=== PATIENT | female | born 1955 | race African-American/Black ===

== ENCOUNTER 2019-03-13 11:09 | Inpatient (IN) ==
[2019-03-13] MEDS ORDERED: MAGNESIUM SULF RIDER 2 GM in PREMIX 1 EACH IV PRN (11:57)
[2019-03-13] MEDS ORDERED: POTASSIUM CHLORIDE RIDER 10 MEQ in PREMIX 1 EACH IV PRN (11:57)
[2019-03-13] MEDS ORDERED: diphenhydrAMINE CAP 25 MG CAPSULE PO ONE (11:57)
[2019-03-13] MEDS ORDERED: DIAZEPAM 5 MG TABLET PO ONE ×2 (11:57→17:11)
[2019-03-13] MEDS ORDERED: ASPIRIN 325 MG TABLET PO ONE (11:57)
[2019-03-13] MEDS ORDERED: DEXTROSE 5% NACL 0.45% 1,000 ML IV SCH (12:00)
[2019-03-13 12:23] LABS: Basophils % 0.3 % (0.0-0.8); Eosinophils % 0.4 % (0.00-10.9); Hematocrit 41.1 VOL% (35.7-47.0); Hemoglobin 13.6 GM/DL (12.0-16.0); Immature Granulocytes % 0.3 %; Immature Granulocytes Absolute 0.03 #; Lymphocytes # 2.4 10*3/uL (1.4-4.0); Lymphocytes % 25.8 % (21.3-54.2); Mean Corpuscular HGB Conc 33.1 GM/DL (32-36); Mean Corpuscular Volume 83.7 FL (87-102); Mean Platelet Volume 9.9 FL (9.6-12.0); Monocytes % 8.2 % (1.7-12.7); Platelet Count 383 T/CUMM (130-400); Red Blood Count 4.91 MC/CUMM (3.8-5.5); Red Cell Distribution Width 12.9 % (9.3-17.3); White Blood Count 9.2 T/CUMM (4-12)
[2019-03-13 12:32] LABS: PT Patient Result 10.8 SECS
[2019-03-13 12:48] LABS: Albumin 4.3 G/DL (3.4-5.0); Bilirubin,Total 0.4 MG/DL (0.2-1.0); Calcium 9.6 MG/DL (8.5-10.1); Osmolality,Calculated 278.1 MOS/KG (273-304); Total Protein 8.3 G/DL (6.4-8.3)
[2019-03-13] MEDS ORDERED: HEPARIN/NACL 0.9% 2 UNITS/ML 1,000 ML IV ONE (13:19)
[2019-03-13] MEDS ORDERED: MIDAZOLAM 2 MG/2 ML VIAL ONE ×2 (13:19→14:13)
[2019-03-13] MEDS ORDERED: fentaNYL 100 MCG/2 ML VIAL ONE (13:19)
[2019-03-13] MEDS ORDERED: methylPREDNISolone SOD SUC 125 MG/2 ML VIAL IV ONE (13:22)
[2019-03-13] MEDS ORDERED: hydrOXYzine HCL 25 MG TABLET PO ONE (13:24)
[2019-03-13] MEDS ORDERED: LIDOCAINE 1%/EPI INJ 20 ML VIAL ONE (13:46)
[2019-03-13] MEDS ORDERED: HYDROmorphone 2 MG/1 ML VIAL ONE (14:01)
[2019-03-13] MEDS ORDERED: ADENOSINE 90 MG/30 ML VIAL IV ONE (14:21)
[2019-03-13] MEDS ORDERED: HEPARIN 5,000 UNIT/1 ML VIAL ONE (14:33)
[2019-03-13] MEDS ORDERED: ENOXAPARIN 60 MG/0.6 ML SYRINGE ONE (14:33)
[2019-03-13] MEDS ORDERED: NITROGLYCERIN DRIP 50 MG/250 ML BOTTLE IV PRN (14:55)
[2019-03-13] MEDS ORDERED: NITROGLYCERIN DRIP 50 MG/250 ML BOTTLE IV ONE (14:57)
[2019-03-13] MEDS ORDERED: CHLORPHENIRAMINE PHENYLEPHRINE PO PRN (15:14)
[2019-03-13] MEDS ORDERED: DEXTROSE 10% 250 ML BAG IV PRN (15:29)
[2019-03-13] MEDS ORDERED: GLUCAGON 1 MG VIAL IM PRN (15:29)
[2019-03-13] MEDS ORDERED: NITROGLYCERIN SL 0.4 MG TABLET SL PRN (15:30)
[2019-03-13] MEDS ORDERED: SODIUM CHLORIDE 0.9% 1,000 ML IV SCH (15:30)
[2019-03-13 15:56] LABS: Basophils % 0.2 % (0.0-0.8); Eosinophils % 0.3 % (0.00-10.9); Hematocrit 40.8 VOL% (35.7-47.0); Hemoglobin 13.3 GM/DL (12.0-16.0); Immature Granulocytes % 0.5 %; Immature Granulocytes Absolute 0.04 #; Lymphocytes # 1.5 10*3/uL (1.4-4.0); Lymphocytes % 16.8 % (21.3-54.2); Mean Corpuscular HGB Conc 32.6 GM/DL (32-36); Mean Corpuscular Volume 85.2 FL (87-102); Mean Platelet Volume 9.7 FL (9.6-12.0); Monocytes % 5.2 % (1.7-12.7); Platelet Count 368 T/CUMM (130-400); Red Blood Count 4.79 MC/CUMM (3.8-5.5); White Blood Count 8.8 T/CUMM (4-12)
[2019-03-13 16:15] LABS: Albumin 4.4 G/DL (3.4-5.0); Bilirubin,Total 0.4 MG/DL (0.2-1.0); Calcium 9.6 MG/DL (8.5-10.1); Osmolality,Calculated 280.2 MOS/KG (273-304); Total Protein 8.2 G/DL (6.4-8.3)
[2019-03-13] MEDS ORDERED: FAMOTIDINE 20 MG TABLET PO ONE (17:11)
[2019-03-13] MEDS ORDERED: hydrALAZINE 20 MG/1 ML VIAL IV PRN (17:22)
[2019-03-13 17:25] LABS: ABG Base Excess 0.1 MMOL/L (-2.5-2.5); ABG HCO3 24.5 MMOL/L (20-26); ABG Oxygen Saturation 96.1 % (95-100); ABG PCO2 43.4 MM HG (35-48); ABG PH 7.377 (7.35-7.45); ABG PO2 83.9 MM HG (80-95); ABG TCO2 22.2 MMOL/L (23-27); Allen Test Positive; Pt O2 Delivery Device Room Air
[2019-03-13] MEDS ORDERED: amLODIPine 5 MG TABLET PO ONE (17:39)
[2019-03-13] MEDS ORDERED: LOSARTAN 50 MG TABLET PO ONE (17:40)
[2019-03-13] MEDS ORDERED: INSULIN GLARGINE 100 UNIT/ML SUBCUT SCH (18:00)
[2019-03-13] MEDS ORDERED: TRIAMCINOLONE 0.1% OINT 15 GM TUBE TOP PRN (21:00)
[2019-03-13] MEDS ORDERED: NEBIVOLOL 5 MG TABLET PO SCH (21:00)
[2019-03-13] MEDS ORDERED: METOPROLOL TARTRATE 5 MG/5 ML VIAL IV PRN (21:14)
[2019-03-13] MEDS: CHLORHEXIDINE 4% SOLN 118 ML BOTTLE TOP SCH (21:49)
[2019-03-13] MEDS: CHLORHEXIDINE 0.12% ORAL RINSE 60 ML BOTTLE SWISH/SPIT SCH (21:52)
[2019-03-14] MEDS ORDERED: PAPAVERINE 60 MG/2 ML VIAL ONE (05:13)
[2019-03-14] MEDS ORDERED: VANCOMYCIN 1,000 MG VIAL ONE (05:14)
[2019-03-14] MEDS: FAMOTIDINE 20 MG TABLET PO ONE ×2 (05:37)
[2019-03-14] MEDS: DIAZEPAM 5 MG TABLET PO ONE ×2 (05:37)
[2019-03-14 05:50] LABS: Basophils % 0.2 % (0.0-0.8); Hematocrit 39.7 VOL% (35.7-47.0); Hemoglobin 13.5 GM/DL (12.0-16.0); Immature Granulocytes % 0.3 %; Immature Granulocytes Absolute 0.03 #; Lymphocytes # 1.8 10*3/uL (1.4-4.0); Lymphocytes % 17.2 % (21.3-54.2); Mean Corpuscular Volume 82.5 FL (87-102); Mean Platelet Volume 10.8 FL (9.6-12.0); Monocytes % 7.5 % (1.7-12.7); Neutrophils % 74.8 % (38.7-73.9); Platelet Count 371 T/CUMM (130-400); Red Blood Count 4.81 MC/CUMM (3.8-5.5); Red Cell Distribution Width 13.1 % (9.3-17.3); White Blood Count 10.6 T/CUMM (4-12)
[2019-03-14] MEDS ORDERED: CEFUROXIME INJ 1,500 MG in SYRINGE 1 EACH IV ONE (06:00)
[2019-03-14 06:24] LABS: Calcium 9.6 MG/DL (8.5-10.1)
[2019-03-14 07:40] LABS: ABG Base Excess 0.6 MMOL/L (-2.5-2.5); ABG PCO2 35.2 MM HG (35-48); ABG PH 7.445 (7.35-7.45); ABG TCO2 21.2 MMOL/L (23-27); Glucose Heart Surgery 333 MG/DL (74-106); Hematocrit Heart Surgery 38.4 PERCENT (37-47); Hemoglobin Heart Surgery 12.5 G/DL (12.0-16.0); Ionized Calcium Arterial 1.18 MMOL/L (1.21-1.46); PCO2 Patient Temp Arterial 35.2 MMHG; PH Patient Temp Arterial 7.445; Patient Temperature 37 CELCIUS; Potassium Heart/CVR 3.6 MMOL/L (3.5-5.1); Sodium Heart/CVR 134 MMOL/L (135-145)
[2019-03-14] MEDS ORDERED: NITROPRUSSIDE 50 MG/2 ML VIAL ONE (07:50)
[2019-03-14] MEDS ORDERED: PHENYLEPHRINE DRIP 40 MG/250 ML PREMIX IV ONE (07:51)
[2019-03-14] MEDS ORDERED: POTASSIUM CHLORIDE RIDER 100 ML IV ONE ×2 (07:51→12:41)
[2019-03-14] MEDS ORDERED: CALCIUM CHLORIDE 1,000 MG/10 ML SYRINGE IV ONE (07:51)
[2019-03-14] MEDS ORDERED: SODIUM BICARBONATE 50 MEQ/50 ML VIAL IV ONE ×3 (07:51→16:17)
[2019-03-14] MEDS ORDERED: CEFUROXIME 1,500 MG VIAL ONE (07:54)
[2019-03-14 08:36] LABS: Apearance,Urine CLEAR (Clear); Bilirubin,Urine Negative (Negative); Blood, Urine Negative (Negative); Glucose,Urine (UA) >=500 mg/dL (Negative); Hyaline Casts,Urine 15 /LPF (0-3); Ketones,Urine Negative (Negative); Mucus,Urine Occasional /LPF (Occasional); Nitrite,Urine Negative (Negative); Protein,Urine Negative; RBC,Urine 1 /HPF (0-4); Transitional Epi Cells,Urine Occasional /HPF (<1); Urine Color Yellow (Yellow); Urine Specific Gravity 1.024 (1.001-1.035); Urine Urobilinogen < 2.0 EU/DL (0.2-1.0); WBC,Urine 1 /HPF (0-6)
[2019-03-14] MEDS ORDERED: amLODIPine 5 MG TABLET PO SCH (09:00)
[2019-03-14] MEDS ORDERED: hydroCHLOROthiazide 25 MG TABLET PO SCH (09:00)
[2019-03-14] MEDS ORDERED: ROSUVASTATIN 10 MG TABLET PO SCH (09:00)
[2019-03-14] MEDS: CHLORHEXIDINE 4% SOLN 118 ML BOTTLE TOP SCH (09:00)
[2019-03-14] MEDS ORDERED: LOSARTAN 50 MG TABLET PO SCH (09:00)
[2019-03-14] MEDS ORDERED: POTASSIUM CHLORIDE 10 MEQ TABLET PO SCH (09:00)
[2019-03-14] MEDS ORDERED: ASPIRIN EC 81 MG TABLET PO SCH (09:00)
[2019-03-14] MEDS: CHLORHEXIDINE 0.12% ORAL RINSE 60 ML BOTTLE SWISH/SPIT SCH ×2 (09:01→21:22)
[2019-03-14 09:19] LABS: Hematocrit Heart Surgery 24.1 PERCENT (37-47); Hemoglobin Heart Surgery 7.7 G/DL (12.0-16.0); PCO2 Patient Temp Venous 30.9 MM HG; PH Patient Temp Venous 7.482; PO2 Patient Temp Venous 39.2 MM HG; VBG Base Excess 0.1 MEQ/L (0-4); VBG HCO3 24.4 MEQ/L (24-28); VBG Oxygen Saturation 85.2 %; VBG PCO2 35.7 MMHG (41-51); VBG PH 7.437; VBG PO2 48.2 MMHG (17-40)
[2019-03-14 09:52] LABS: Hemoglobin Heart Surgery 8.6 G/DL (12.0-16.0); PCO2 Patient Temp Venous 29.6 MM HG; PH Patient Temp Venous 7.502; PO2 Patient Temp Venous 42.4 MM HG; Potassium Heart/CVR 3.7 MMOL/L (3.5-5.1); VBG Base Excess -0.2 MEQ/L (0-4); VBG HCO3 23.1 MEQ/L (24-28); VBG Oxygen Saturation 81.1 %; VBG PCO2 32.3 MMHG (41-51); VBG PH 7.472; VBG PO2 48.8 MMHG (17-40)
[2019-03-14] MEDS ORDERED: MANNITOL 100 GM/500 ML BAG IV ONE (10:18)
[2019-03-14] MEDS ORDERED: ALBUMIN 5% 12.5 GM/250 ML VIAL IV ONE (10:19)
[2019-03-14] MEDS ORDERED: DEXTROSE 5% KCL 20 MEQ 20 MEQ/1,000 ML BAG IV ONE (10:19)
[2019-03-14] MEDS ORDERED: MAGNESIUM SULFATE 5 GM/10 ML VIAL IV ONE (10:19)
[2019-03-14] MEDS ORDERED: ALBUMIN 25% 25 GM/100 ML VIAL IV ONE (10:19)
[2019-03-14] MEDS ORDERED: HEPARIN 10,000 UNIT/10 ML VIAL ONE ×2 (10:19→11:21)
[2019-03-14] MEDS ORDERED: methylPREDNISolone SOD SUC 1,000 MG/8 ML VIAL ONE (10:19)
[2019-03-14] MEDS ORDERED: PROTAMINE SULFATE 250 MG/25 ML VIAL IV ONE (10:19)
[2019-03-14] MEDS ORDERED: FUROSEMIDE 20 MG/2 ML VIAL ONE (10:19)
[2019-03-14 10:23] LABS: ABG Base Excess 0.6 MMOL/L (-2.5-2.5); ABG PCO2 31.2 MM HG (35-48); ABG PH 7.485 (7.35-7.45); ABG TCO2 21.5 MMOL/L (23-27); Glucose Heart Surgery 312 MG/DL (74-106); Hematocrit Heart Surgery 28.5 PERCENT (37-47); Hemoglobin Heart Surgery 9.2 G/DL (12.0-16.0); Ionized Calcium Arterial 1.38 MMOL/L (1.21-1.46); PCO2 Patient Temp Arterial 31.2 MMHG; PH Patient Temp Arterial 7.485; Patient Temperature 37 CELCIUS; Potassium Heart/CVR 3.3 MMOL/L (3.5-5.1); Sodium Heart/CVR 135 MMOL/L (135-145)
[2019-03-14] MEDS ORDERED: CALCIUM CHLORIDE 1,000 MG/10 ML VIAL IV ONE (11:20)
[2019-03-14] MEDS ORDERED: SEVOFLURANE 1 UNIT/15 MINUTE INH ONE (11:21)
[2019-03-14] MEDS ORDERED: PHENYLEPHRINE DRIP 20 MG/250 ML PREMIX IV ONE (11:21)
[2019-03-14] MEDS ORDERED: EPINEPHrine 1 MG/ML VIAL ONE (11:21)
[2019-03-14] MEDS ORDERED: SUFentanil 250 MCG/5 ML AMP ONE (11:21)
[2019-03-14] MEDS ORDERED: HEPARIN/NACL 0.9% 2 UNITS/ML 500 ML IV ONE (11:21)
[2019-03-14] MEDS ORDERED: MIDAZOLAM 10 MG/2 ML VIAL ONE (11:21)
[2019-03-14] MEDS ORDERED: SODIUM CHLORIDE 0.9% 250 ML IV ONE (11:22)
[2019-03-14] MEDS ORDERED: VECURONIUM 10 MG VIAL IV ONE (11:22)
[2019-03-14] MEDS ORDERED: diphenhydrAMINE 50 MG/1 ML VIAL ONE (11:22)
[2019-03-14] MEDS ORDERED: SODIUM CHLORIDE 0.9% 100 ML IV ONE (11:22)
[2019-03-14] MEDS ORDERED: AMINOCAPROIC ACID 5,000 MG/20 ML VIAL ONE (11:22)
[2019-03-14] MEDS ORDERED: LACTATED RINGERS 1,000 ML IV ONE (11:22)
[2019-03-14] MEDS ORDERED: SODIUM CHLORIDE 0.9% 2,000 ML IV ONE (11:22)
[2019-03-14] MEDS ORDERED: ACETAMINOPHEN 650 MG SUPP RECTAL PRN (11:30)
[2019-03-14] MEDS ORDERED: DEXTROSE 50% 25 GM/50 ML VIAL IV PRN ×2 (11:30)
[2019-03-14] MEDS ORDERED: MORPHINE 10 MG/1 ML VIAL IV PRN (11:30)
[2019-03-14] MEDS ORDERED: ALBUMIN 5% 12.5 GM in PREMIX 1 EACH IV PRN (11:30)
[2019-03-14] MEDS ORDERED: MIDAZOLAM 10 MG/2 ML VIAL IV PRN (11:30)
[2019-03-14] MEDS ORDERED: INSULIN REGULAR 100 UNIT/ML IV ONE (11:30)
[2019-03-14] MEDS ORDERED: MAGNESIUM SULF RIDER 2 GM in PREMIX 1 EACH IV PRN (11:30)
[2019-03-14] MEDS ORDERED: POTASSIUM CHLORIDE RIDER 10 MEQ in PREMIX 1 EACH IV PRN (11:30)
[2019-03-14] MEDS ORDERED: VECURONIUM 10 MG VIAL IV PRN ×2 (11:30)
[2019-03-14] MEDS ORDERED: MIDAZOLAM 2 MG/2 ML VIAL IV PRN (11:30)
[2019-03-14] MEDS ORDERED: MAGNESIUM SULF RIDER 4 GM in PREMIX 1 EACH IV PRN (11:30)
[2019-03-14] MEDS ORDERED: INSULIN REGULAR 100 UNIT/ML IV PRN (11:30)
[2019-03-14] MEDS ORDERED: LACTATED RINGERS 250 ML IV PRN (11:30)
[2019-03-14] MEDS ORDERED: CALCIUM CHLORIDE 1,000 MG/10 ML SYRINGE IV PRN (11:30)
[2019-03-14] MEDS ORDERED: PHENYLEPHRINE DRIP 40 MG/250 ML PREMIX IV PRN (11:30)
[2019-03-14] MEDS ORDERED: NITROPRUSSIDE 100 MG in DEXTROSE 5% 250 ML IV PRN (11:30)
[2019-03-14 11:33] LABS: ABG Base Excess -0.1 MMOL/L (-2.5-2.5); ABG HCO3 24.4 MMOL/L (20-26); ABG Oxygen Saturation 99.1 % (95-100); ABG PCO2 36.8 MM HG (35-48); ABG PH 7.423 (7.35-7.45); ABG TCO2 21.7 MMOL/L (23-27); Glucose Heart Surgery 320 MG/DL (74-106); Hematocrit Heart Surgery 32.4 PERCENT (37-47); Hemoglobin Heart Surgery 10.5 G/DL (12.0-16.0); Potassium Heart/CVR 3.4 MMOL/L (3.5-5.1)
[2019-03-14 11:40] LABS: Basophils % 0.2 % (0.0-0.8); Eosinophils % 0.2 % (0.00-10.9); Hematocrit 30.4 VOL% (35.7-47.0); Hemoglobin 10.1 GM/DL (12.0-16.0); Immature Granulocytes % 0.7 %; Immature Granulocytes Absolute 0.09 #; Lymphocytes # 1.5 10*3/uL (1.4-4.0); Lymphocytes % 11.7 % (21.3-54.2); Mean Corpuscular HGB Conc 33.2 GM/DL (32-36); Mean Corpuscular Volume 84.4 FL (87-102); Mean Platelet Volume 10.2 FL (9.6-12.0); Monocytes % 6.7 % (1.7-12.7); Neutrophils % 80.5 % (38.7-73.9); Platelet Count 269 T/CUMM (130-400); Red Cell Distribution Width 12.9 % (9.3-17.3); White Blood Count 12.6 T/CUMM (4-12)
[2019-03-14 11:46] LABS: INR 1.1; Partial Thromboplastin Time 24.3 SECS (0-40)
[2019-03-14 11:55] LABS: CKMB % 4.1 %
[2019-03-14 11:57] LABS: Troponin I 1.31 NG/ML (0.00-0.045)
[2019-03-14] MEDS: SODIUM CHLORIDE 0.45% 1,000 ML IV SCH ×2 (11:58→11:59)
[2019-03-14] MEDS: POTASSIUM CHLORIDE RIDER 20 MEQ in PREMIX 1 EACH IV PRN ×5 (11:59→21:58)
[2019-03-14] MEDS: INSULIN REGULAR DRIP 100 ML IV SCH ×2 (12:01→21:19)
[2019-03-14 12:05] LABS: Albumin 4.1 G/DL (3.4-5.0); Calcium 9.1 MG/DL (8.5-10.1); Osmolality,Calculated 293.3 MOS/KG (273-304); Total Protein 6.2 G/DL (6.4-8.3)
[2019-03-14] MEDS: KETOROLAC 15 MG/1 ML VIAL IV SCH ×2 (13:14→17:31)
[2019-03-14 13:33] LABS: ABG Base Excess -1.4 MMOL/L (-2.5-2.5); ABG HCO3 23.2 MMOL/L (20-26); ABG Oxygen Saturation 98.9 % (95-100); ABG PCO2 38.1 MM HG (35-48); ABG PH 7.392 (7.35-7.45); ABG TCO2 20.7 MMOL/L (23-27); Glucose Heart Surgery 300 MG/DL (74-106); Hematocrit Heart Surgery 34.7 PERCENT (37-47); Hemoglobin Heart Surgery 11.3 G/DL (12.0-16.0); Potassium Heart/CVR 4.4 MMOL/L (3.5-5.1)
[2019-03-14 15:31] LABS: ABG Base Excess -4.1 MMOL/L (-2.5-2.5); ABG Oxygen Saturation 97.2 % (95-100); ABG PCO2 41.3 MM HG (35-48); ABG PH 7.328 (7.35-7.45); ABG TCO2 19.6 MMOL/L (23-27); Glucose Heart Surgery 224 MG/DL (74-106); Hematocrit Heart Surgery 34.1 PERCENT (37-47); Potassium Heart/CVR 3.4 MMOL/L (3.5-5.1)
[2019-03-14 17:06] LABS: ABG Base Excess -2.2 MMOL/L (-2.5-2.5); ABG HCO3 22.4 MMOL/L (20-26); ABG Oxygen Saturation 96.8 % (95-100); ABG PCO2 38.2 MM HG (35-48); ABG PH 7.387 (7.35-7.45); ABG PO2 107.6 MM HG (80-95); ABG TCO2 23.6 MMOL/L (23-27); Glucose Heart Surgery 191 MG/DL (74-106); Hemoglobin Heart Surgery 11.3 G/DL (12.0-16.0); Potassium Heart/CVR 4.1 MMOL/L (3.5-5.1)
[2019-03-14] MEDS: MORPHINE 4 MG/1 ML VIAL IV PRN (19:22)
[2019-03-14] MEDS: CEFUROXIME INJ 1,500 MG in SYRINGE 1 EACH IV SCH (19:26)
[2019-03-14] MEDS ORDERED: FUROSEMIDE 40 MG/4 ML VIAL IV ONE (19:43)
[2019-03-14 20:08] LABS: ABG Base Excess 0.5 MMOL/L (-2.5-2.5); ABG HCO3 23.9 MMOL/L (20-26); ABG Oxygen Saturation 97.2 % (95-100); ABG PCO2 34.2 MM HG (35-48); ABG PH 7.462 (7.35-7.45); ABG TCO2 24.9 MMOL/L (23-27); Glucose Heart Surgery 156 MG/DL (74-106); Hemoglobin Heart Surgery 11.5 G/DL (12.0-16.0); Potassium Heart/CVR 4.1 MMOL/L (3.5-5.1)
[2019-03-14 20:55] LABS: ABG Base Excess -0.2 MMOL/L (-2.5-2.5); ABG HCO3 24.3 MMOL/L (20-26); ABG Oxygen Saturation 97.8 % (95-100); ABG PCO2 44.2 MM HG (35-48); ABG PH 7.368 (7.35-7.45); ABG TCO2 22.6 MMOL/L (23-27); Glucose Heart Surgery 160 MG/DL (74-106); Hematocrit Heart Surgery 36.8 PERCENT (37-47); Potassium Heart/CVR 3.6 MMOL/L (3.5-5.1)
[2019-03-14 21:04] LABS: CKMB % 2.7 %
[2019-03-14 21:12] LABS: Troponin I 1.63 NG/ML (0.00-0.045)
[2019-03-15] MEDS: KETOROLAC 15 MG/1 ML VIAL IV SCH ×4 (00:16→17:31)
[2019-03-15] MEDS: POTASSIUM CHLORIDE RIDER 20 MEQ in PREMIX 1 EACH IV PRN ×2 (00:27→00:49)
[2019-03-15] MEDS ORDERED: FUROSEMIDE 40 MG/4 ML VIAL IV ONE ×2 (03:10→15:21)
[2019-03-15 03:28] LABS: ABG Base Excess 1.1 MMOL/L (-2.5-2.5); ABG HCO3 25.3 MMOL/L (20-26); ABG Oxygen Saturation 92.7 % (95-100); ABG PCO2 44.5 MM HG (35-48); ABG PH 7.383 (7.35-7.45); ABG PO2 66.9 MM HG (80-95); ABG TCO2 23.7 MMOL/L (23-27); Glucose Heart Surgery 127 MG/DL (74-106); Hematocrit Heart Surgery 35.4 PERCENT (37-47); Hemoglobin Heart Surgery 11.5 G/DL (12.0-16.0)
[2019-03-15 03:42] LABS: Basophils % 0.1 % (0.0-0.8); Hematocrit 33.4 VOL% (35.7-47.0); Hemoglobin 11.1 GM/DL (12.0-16.0); Immature Granulocytes % 0.4 %; Immature Granulocytes Absolute 0.06 #; Lymphocytes # 0.7 10*3/uL (1.4-4.0); Lymphocytes % 4.1 % (21.3-54.2); Mean Corpuscular HGB Conc 33.2 GM/DL (32-36); Mean Corpuscular Volume 85.4 FL (87-102); Mean Platelet Volume 10.1 FL (9.6-12.0); Neutrophils % 88.4 % (38.7-73.9); Platelet Count 335 T/CUMM (130-400); Red Blood Count 3.91 MC/CUMM (3.8-5.5); Red Cell Distribution Width 13.6 % (9.3-17.3)
[2019-03-15 03:45] LABS: Alanine Aminotransferase 74 U/L (13-56); Albumin 3.8 G/DL (3.4-5.0); Alkaline Phosphatase 58 U/L (45-117); Aspartate Amino Transferase 57 U/L (0-37); Bilirubin,Direct < 0.100 MG/DL (0.0-0.20); Bilirubin,Total < 0.39 MG/DL (0.2-1.0); Blood Urea Nitrogen 13 MG/DL (7-18); Calcium 8.7 MG/DL (8.5-10.1); Glucose 119 MG/DL (74-106); Osmolality,Calculated 286.8 MOS/KG (273-304); Total Protein 7.1 G/DL (6.4-8.3)
[2019-03-15 03:53] LABS: CKMB % 1.6 %
[2019-03-15 04:09] LABS: Troponin I 1.15 NG/ML (0.00-0.045)
[2019-03-15 04:28] LABS: Band Neutrophils 1 % (0-10); Lymphocytes 4 % (20-55); Segmented Neutrophils 82 % (50-85)
[2019-03-15 04:29] LABS: Platelet Estimate Adequate; Total Cells Counted 100
[2019-03-15] MEDS ORDERED: amLODIPine 5 MG TABLET PO ONE ×2 (06:26→08:13)
[2019-03-15] MEDS ORDERED: LOSARTAN 50 MG TABLET PO ONE ×2 (06:28→08:13)
[2019-03-15] MEDS ORDERED: NEBIVOLOL 5 MG TABLET PO ONE ×2 (06:29→08:13)
[2019-03-15] MEDS ORDERED: DEXTROSE 10% 25 GM/250 ML BAG IV PRN (07:14)
[2019-03-15] MEDS ORDERED: GLUCAGON 1 MG VIAL IM PRN (07:14)
[2019-03-15] MEDS ORDERED: TRIAMCINOLONE 0.1% OINT 15 GM TUBE TOP PRN (08:13)
[2019-03-15] MEDS ORDERED: hydrALAZINE 20 MG/1 ML VIAL IV PRN (08:13)
[2019-03-15] MEDS: CEFUROXIME INJ 1,500 MG in SYRINGE 1 EACH IV SCH ×2 (08:58→22:02)
[2019-03-15] MEDS ORDERED: ERGOCALCIFEROL 50,000 UNIT CAPSULE PO SCH (09:00)
[2019-03-15] MEDS: CARVEDILOL 6.25 MG TABLET PO SCH ×2 (10:02→17:31)
[2019-03-15] MEDS: CHLORHEXIDINE 0.12% ORAL RINSE 60 ML BOTTLE SWISH/SPIT SCH ×2 (10:02→22:03)
[2019-03-15] MEDS: INSULIN REGULAR 100 UNIT/ML SUBCUT SCH ×4 (10:18→22:03)
[2019-03-15 11:52] LABS: Troponin I 0.788 NG/ML (0.00-0.045)
[2019-03-15] MEDS: SODIUM CHLORIDE 0.45% 1,000 ML IV SCH ×2 (11:59→12:08)
[2019-03-15] MEDS: ONDANSETRON 4 MG/2 ML VIAL IV PRN (13:20)
[2019-03-15] MEDS: MORPHINE 4 MG/1 ML VIAL IV PRN (15:30)
[2019-03-15] MEDS ORDERED: CEFUROXIME INJ 1,500 MG in SYRINGE 1 EACH IV SCH (22:00)
[2019-03-16] MEDS: MORPHINE 4 MG/1 ML VIAL IV PRN ×2 (00:31→09:51)
[2019-03-16] MEDS: INSULIN REGULAR 100 UNIT/ML SUBCUT SCH ×3 (02:38→10:32)
[2019-03-16 05:26] LABS: Basophils % 0.1 % (0.0-0.8); Hematocrit 33.9 VOL% (35.7-47.0); Hemoglobin 10.7 GM/DL (12.0-16.0); Immature Granulocytes Absolute 0.18 #; Lymphocytes # 2.1 10*3/uL (1.4-4.0); Lymphocytes % 11.9 % (21.3-54.2); Mean Corpuscular HGB Conc 31.6 GM/DL (32-36); Mean Corpuscular Volume 87.4 FL (87-102); Mean Platelet Volume 10.8 FL (9.6-12.0); Monocytes % 9.5 % (1.7-12.7); Neutrophils % 77.5 % (38.7-73.9); Platelet Count 342 T/CUMM (130-400); Red Blood Count 3.88 MC/CUMM (3.8-5.5); Red Cell Distribution Width 13.4 % (9.3-17.3); White Blood Count 17.4 T/CUMM (4-12)
[2019-03-16 05:50] LABS: Albumin 3.6 G/DL (3.4-5.0); Bilirubin,Direct 0.1 MG/DL (0.0-0.20); Bilirubin,Total 0.4 MG/DL (0.2-1.0); Calcium 8.7 MG/DL (8.5-10.1); Osmolality,Calculated 283.7 MOS/KG (273-304); Total Protein 6.5 G/DL (6.4-8.3)
[2019-03-16] MEDS: POTASSIUM CHLORIDE RIDER 20 MEQ in PREMIX 1 EACH IV PRN (06:45)
[2019-03-16] MEDS ORDERED: TRIAMCINOLONE 0.1% OINT 15 GM TUBE TOP PRN (07:59)
[2019-03-16] MEDS ORDERED: LOSARTAN 50 MG TABLET PO ONE (07:59)
[2019-03-16] MEDS ORDERED: amLODIPine 5 MG TABLET PO ONE (07:59)
[2019-03-16] MEDS ORDERED: NEBIVOLOL 5 MG TABLET PO ONE (07:59)
[2019-03-16] MEDS ORDERED: hydrALAZINE 20 MG/1 ML VIAL IV PRN (07:59)
[2019-03-16] MEDS ORDERED: CARVEDILOL 12.5 MG TABLET PO SCH (09:00)
[2019-03-16] MEDS ORDERED: NEBIVOLOL 5 MG TABLET PO SCH (09:00)
[2019-03-16] MEDS ORDERED: ERGOCALCIFEROL 50,000 UNIT CAPSULE PO SCH (09:00)
[2019-03-16] MEDS: ROSUVASTATIN 10 MG TABLET PO SCH (09:49)
[2019-03-16] MEDS: LOSARTAN 25 MG TABLET PO SCH (09:49)
[2019-03-16] MEDS: CARVEDILOL 12.5 MG TABLET PO SCH ×2 (09:49→17:30)
[2019-03-16] MEDS: ONDANSETRON 4 MG/2 ML VIAL IV PRN (09:49)
[2019-03-16] MEDS: CHLORHEXIDINE 0.12% ORAL RINSE 60 ML BOTTLE SWISH/SPIT SCH ×3 (09:49→20:52)
[2019-03-16] MEDS: SODIUM CHLORIDE 0.45% 1,000 ML IV SCH ×2 (12:17→13:46)
[2019-03-16] MEDS ORDERED: GLUCAGON 1 MG VIAL IM PRN ×2 (12:22)
[2019-03-16] MEDS ORDERED: SODIUM CHLOR 0.45% KCL 20 MEQ 20 MEQ/1,000 ML BAG IV SCH (12:22)
[2019-03-16] MEDS ORDERED: ZALEPLON 5 MG CAPSULE PO PRN (12:22)
[2019-03-16] MEDS ORDERED: MAGNESIUM SULF RIDER 4 GM in PREMIX 1 EACH IV PRN (12:22)
[2019-03-16] MEDS ORDERED: MAGNESIUM SULF RIDER 2 GM in PREMIX 1 EACH IV PRN (12:22)
[2019-03-16] MEDS ORDERED: DEXTROSE 10% 25 GM/250 ML BAG IV PRN ×2 (12:22)
[2019-03-16] MEDS ORDERED: ACETAMINOPHEN 325 MG TABLET PO PRN (12:22)
[2019-03-16] MEDS: DOCUSATE SODIUM 100 MG CAPSULE PO SCH (13:43)
[2019-03-16] MEDS: FERROUS SULFATE 325 MG TABLET PO SCH (13:43)
[2019-03-16] MEDS: PANTOPRAZOLE 40 MG TABLET PO SCH (13:43)
[2019-03-16] MEDS: metFORMIN 500 MG TABLET PO SCH ×2 (13:43→18:26)
[2019-03-16] MEDS ORDERED: FUROSEMIDE 40 MG/4 ML VIAL ONE (17:57)
[2019-03-16] MEDS: ALBUTEROL/IPRATROPIUM 3 ML NEB RESP TX PRN (18:10)
[2019-03-16] MEDS: NEBIVOLOL 5 MG TABLET PO SCH (20:52)
[2019-03-16] MEDS: oxyCODONE/ACETAMINOPHEN 5-325 MG TABLET PO PRN (23:33)
[2019-03-17] MEDS: ALBUTEROL/IPRATROPIUM 3 ML NEB RESP TX PRN ×2 (00:45→17:30)
[2019-03-17] MEDS: oxyCODONE/ACETAMINOPHEN 5-325 MG TABLET PO PRN ×2 (04:25→18:57)
[2019-03-17 04:43] LABS: Basophils % 0.2 % (0.0-0.8); Hemoglobin 10.6 GM/DL (12.0-16.0); Immature Granulocytes % 0.5 %; Immature Granulocytes Absolute 0.06 #; Lymphocytes # 2.1 10*3/uL (1.4-4.0); Lymphocytes % 16.6 % (21.3-54.2); Mean Corpuscular HGB Conc 33.1 GM/DL (32-36); Mean Corpuscular Volume 85.8 FL (87-102); Mean Platelet Volume 10.4 FL (9.6-12.0); Monocytes % 10.2 % (1.7-12.7); Neutrophils % 72.5 % (38.7-73.9); Platelet Count 339 T/CUMM (130-400); Red Blood Count 3.73 MC/CUMM (3.8-5.5); White Blood Count 12.8 T/CUMM (4-12)
[2019-03-17 05:06] LABS: Alanine Aminotransferase 98 U/L (13-56); Albumin 3.6 G/DL (3.4-5.0); Alkaline Phosphatase 82 U/L (45-117); Aspartate Amino Transferase 46 U/L (0-37); Bilirubin,Indirect 0.4 MG/DL (0.0-1.0); Blood Urea Nitrogen 22 MG/DL (7-18); Calcium 9.2 MG/DL (8.5-10.1); Glucose 283 MG/DL (74-106); Osmolality,Calculated 276.5 MOS/KG (273-304); Total Protein 7.2 G/DL (6.4-8.3)
[2019-03-17 05:07] LABS: Troponin I 0.306 NG/ML (0.00-0.045)
[2019-03-17] MEDS ORDERED: FUROSEMIDE 40 MG/4 ML VIAL IV ONE (06:00)
[2019-03-17] MEDS ORDERED: ASPIRIN EC 81 MG TABLET PO SCH (09:00)
[2019-03-17] MEDS: ONDANSETRON 4 MG/2 ML VIAL IV PRN (09:09)
[2019-03-17] MEDS: CARVEDILOL 12.5 MG TABLET PO SCH ×2 (09:50→17:02)
[2019-03-17] MEDS: DOCUSATE SODIUM 100 MG CAPSULE PO SCH (09:50)
[2019-03-17] MEDS: FERROUS SULFATE 325 MG TABLET PO SCH (09:50)
[2019-03-17] MEDS: ASPIRIN EC 81 MG TABLET PO SCH (09:51)
[2019-03-17] MEDS: ROSUVASTATIN 10 MG TABLET PO SCH (09:51)
[2019-03-17] MEDS: LOSARTAN 25 MG TABLET PO SCH (09:51)
[2019-03-17] MEDS: metFORMIN 500 MG TABLET PO SCH ×2 (09:51→17:02)
[2019-03-17] MEDS: PANTOPRAZOLE 40 MG TABLET PO SCH (09:51)
[2019-03-17] MEDS: CHLORHEXIDINE 0.12% ORAL RINSE 60 ML BOTTLE SWISH/SPIT SCH ×2 (09:53→20:30)
[2019-03-17] MEDS ORDERED: INSULIN REGULAR 100 UNIT/ML ONE (13:53)
[2019-03-17] MEDS: INSULIN REGULAR 100 UNIT/ML SUBCUT SCH ×3 (13:54→20:29)
[2019-03-17] MEDS: ASCORBIC ACID 500 MG TABLET PO SCH (20:30)
[2019-03-17] MEDS: NEBIVOLOL 5 MG TABLET PO SCH (20:30)
[2019-03-18] MEDS: CLORAZEPATE 3.75 MG TABLET PO PRN ×2 (00:13→09:03)
[2019-03-18 05:02] LABS: Basophils % 0.1 % (0.0-0.8); Eosinophils % 0.3 % (0.00-10.9); Hematocrit 28.5 VOL% (35.7-47.0); Hemoglobin 9.5 GM/DL (12.0-16.0); Immature Granulocytes % 0.7 %; Immature Granulocytes Absolute 0.08 #; Lymphocytes # 2.4 10*3/uL (1.4-4.0); Lymphocytes % 20.9 % (21.3-54.2); Mean Corpuscular HGB Conc 33.3 GM/DL (32-36); Mean Corpuscular Volume 84.6 FL (87-102); Mean Platelet Volume 10.7 FL (9.6-12.0); Monocytes % 8.3 % (1.7-12.7); Neutrophils % 69.7 % (38.7-73.9); Platelet Count 345 T/CUMM (130-400); Red Blood Count 3.37 MC/CUMM (3.8-5.5); Red Cell Distribution Width 12.6 % (9.3-17.3); White Blood Count 11.5 T/CUMM (4-12)
[2019-03-18 05:58] LABS: Alanine Aminotransferase 100 U/L (13-56); Alkaline Phosphatase 90 U/L (45-117); Aspartate Amino Transferase 49 U/L (0-37); Bilirubin,Indirect 0.8 MG/DL (0.0-1.0); Blood Urea Nitrogen 20 MG/DL (7-18); Calcium 8.5 MG/DL (8.5-10.1); Glucose 141 MG/DL (74-106); Osmolality,Calculated 268.5 MOS/KG (273-304); Total Protein 6.6 G/DL (6.4-8.3)
[2019-03-18 06:00] LABS: Troponin I 0.147 NG/ML (0.00-0.045)
[2019-03-18] MEDS: ALBUTEROL/IPRATROPIUM 3 ML NEB RESP TX SCH ×5 (08:00→23:31)
[2019-03-18] MEDS: INSULIN REGULAR 100 UNIT/ML SUBCUT SCH ×4 (08:18→20:23)
[2019-03-18] MEDS: metFORMIN 500 MG TABLET PO SCH ×2 (09:02→16:40)
[2019-03-18] MEDS: FERROUS SULFATE 325 MG TABLET PO SCH (09:02)
[2019-03-18] MEDS: ASCORBIC ACID 500 MG TABLET PO SCH ×2 (09:02→20:23)
[2019-03-18] MEDS: DOCUSATE SODIUM 100 MG CAPSULE PO SCH (09:03)
[2019-03-18] MEDS: hydroCHLOROthiazide 25 MG TABLET PO SCH (09:03)
[2019-03-18] MEDS: LOSARTAN 25 MG TABLET PO SCH (09:03)
[2019-03-18] MEDS: PANTOPRAZOLE 40 MG TABLET PO SCH (09:03)
[2019-03-18] MEDS: ROSUVASTATIN 10 MG TABLET PO SCH (09:03)
[2019-03-18] MEDS: CARVEDILOL 12.5 MG TABLET PO SCH ×2 (09:03→16:40)
[2019-03-18] MEDS: CHLORHEXIDINE 0.12% ORAL RINSE 60 ML BOTTLE SWISH/SPIT SCH ×2 (09:04→20:26)
[2019-03-18] MEDS: FUROSEMIDE 40 MG/4 ML VIAL IV SCH ×2 (12:33→16:41)
[2019-03-18] MEDS: NEBIVOLOL 5 MG TABLET PO SCH (20:23)
[2019-03-19] MEDS: ALBUTEROL/IPRATROPIUM 3 ML NEB RESP TX SCH ×6 (02:27→23:14)
[2019-03-19] MEDS ORDERED: ERGOCALCIFEROL 50,000 UNIT CAPSULE PO SCH (09:00)
[2019-03-19 09:20] LABS: Calcium 9.2 MG/DL (8.5-10.1); Osmolality,Calculated 271.4 MOS/KG (273-304)
[2019-03-19] MEDS: ASCORBIC ACID 500 MG TABLET PO SCH ×2 (10:14→20:51)
[2019-03-19] MEDS: metFORMIN 500 MG TABLET PO SCH ×2 (10:14→16:12)
[2019-03-19] MEDS: PANTOPRAZOLE 40 MG TABLET PO SCH (10:15)
[2019-03-19] MEDS: FERROUS SULFATE 325 MG TABLET PO SCH (10:15)
[2019-03-19] MEDS: hydroCHLOROthiazide 25 MG TABLET PO SCH (10:15)
[2019-03-19] MEDS: DOCUSATE SODIUM 100 MG CAPSULE PO SCH (10:15)
[2019-03-19] MEDS: CARVEDILOL 12.5 MG TABLET PO SCH ×2 (10:15→16:12)
[2019-03-19] MEDS: ASPIRIN EC 81 MG TABLET PO SCH (10:15)
[2019-03-19] MEDS: LOSARTAN 25 MG TABLET PO SCH (10:16)
[2019-03-19] MEDS: INSULIN REGULAR 100 UNIT/ML SUBCUT SCH ×4 (10:16→21:01)
[2019-03-19] MEDS: FUROSEMIDE 40 MG/4 ML VIAL IV SCH ×2 (10:17→10:34)
[2019-03-19] MEDS: CHLORHEXIDINE 0.12% ORAL RINSE 60 ML BOTTLE SWISH/SPIT SCH ×2 (10:19→20:52)
[2019-03-19] MEDS: ROSUVASTATIN 10 MG TABLET PO SCH (10:19)
[2019-03-19] MEDS: NEBIVOLOL 5 MG TABLET PO SCH (20:51)
[2019-03-19] MEDS: ALUMINUM/MAGNES/SIMETH MAX STR 30 ML UDCUP PO PRN (21:01)
[2019-03-20] MEDS: ALBUTEROL/IPRATROPIUM 3 ML NEB RESP TX SCH ×5 (02:37→19:50)
[2019-03-20] MEDS: POTASSIUM CHLORIDE 20 MEQ TABLET PO PRN ×3 (03:00→05:35)
[2019-03-20 05:20] LABS: Basophils % 0.3 % (0.0-0.8); Eosinophils # 0.1 10*3/uL (0.0-0.87); Eosinophils % 0.8 % (0.00-10.9); Hemoglobin 10.1 GM/DL (12.0-16.0); Immature Granulocytes % 1.3 %; Immature Granulocytes Absolute 0.14 #; Lymphocytes # 3.1 10*3/uL (1.4-4.0); Lymphocytes % 27.6 % (21.3-54.2); Mean Corpuscular HGB Conc 33.7 GM/DL (32-36); Mean Corpuscular Volume 82.4 FL (87-102); Mean Platelet Volume 9.8 FL (9.6-12.0); Monocytes % 9.5 % (1.7-12.7); NRBC # 0.05 10*3/uL; Neutrophils % 60.5 % (38.7-73.9); Platelet Count 456 T/CUMM (130-400); Red Blood Count 3.64 MC/CUMM (3.8-5.5); Red Cell Distribution Width 12.5 % (9.3-17.3); White Blood Count 11.1 T/CUMM (4-12)
[2019-03-20 06:03] LABS: Alanine Aminotransferase 55 U/L (13-56); Albumin 3.2 G/DL (3.4-5.0); Alkaline Phosphatase 89 U/L (45-117); Aspartate Amino Transferase 14 U/L (0-37); Bilirubin,Indirect 0.3 MG/DL (0.0-1.0); Blood Urea Nitrogen 15 MG/DL (7-18); Calcium 9.2 MG/DL (8.5-10.1); Glucose 144 MG/DL (74-106); Osmolality,Calculated 271.2 MOS/KG (273-304); Total Protein 6.7 G/DL (6.4-8.3)
[2019-03-20 06:04] LABS: Troponin I 0.071 NG/ML (0.00-0.045)
[2019-03-20] MEDS ORDERED: ERGOCALCIFEROL 50,000 UNIT CAPSULE PO SCH (09:00)
[2019-03-20] MEDS: INSULIN REGULAR 100 UNIT/ML SUBCUT SCH ×4 (09:15→22:01)
[2019-03-20] MEDS: FERROUS SULFATE 325 MG TABLET PO SCH (09:16)
[2019-03-20] MEDS: hydroCHLOROthiazide 25 MG TABLET PO SCH (09:16)
[2019-03-20] MEDS: LOSARTAN 25 MG TABLET PO SCH (09:16)
[2019-03-20] MEDS: FUROSEMIDE 40 MG/4 ML VIAL IV SCH (09:16)
[2019-03-20] MEDS: metFORMIN 500 MG TABLET PO SCH ×2 (09:16→17:07)
[2019-03-20] MEDS: ROSUVASTATIN 10 MG TABLET PO SCH (09:16)
[2019-03-20] MEDS: CARVEDILOL 12.5 MG TABLET PO SCH ×2 (09:16→17:07)
[2019-03-20] MEDS: DOCUSATE SODIUM 100 MG CAPSULE PO SCH (09:16)
[2019-03-20] MEDS: CHLORHEXIDINE 0.12% ORAL RINSE 60 ML BOTTLE SWISH/SPIT SCH ×2 (09:17→22:09)
[2019-03-20] MEDS: PANTOPRAZOLE 40 MG TABLET PO SCH (09:17)
[2019-03-20] MEDS: ASCORBIC ACID 500 MG TABLET PO SCH ×2 (09:17→22:01)
[2019-03-20] MEDS: NEBIVOLOL 5 MG TABLET PO SCH (22:01)
[2019-03-21] MEDS: ALBUTEROL/IPRATROPIUM 3 ML NEB RESP TX SCH ×6 (00:25→20:25)
[2019-03-21] MEDS: oxyCODONE/ACETAMINOPHEN 5-325 MG TABLET PO PRN ×2 (00:28→22:16)
[2019-03-21] MEDS: ALUMINUM/MAGNES/SIMETH MAX STR 30 ML UDCUP PO PRN (05:11)
[2019-03-21 06:01] LABS: Basophils % 0.2 % (0.0-0.8); Eosinophils # 0.1 10*3/uL (0.0-0.87); Hematocrit 31.1 VOL% (35.7-47.0); Hemoglobin 10.5 GM/DL (12.0-16.0); Immature Granulocytes % 1.8 %; Immature Granulocytes Absolute 0.23 #; Lymphocytes # 3.2 10*3/uL (1.4-4.0); Lymphocytes % 24.7 % (21.3-54.2); Mean Corpuscular HGB Conc 33.8 GM/DL (32-36); Mean Corpuscular Volume 83.2 FL (87-102); Mean Platelet Volume 9.7 FL (9.6-12.0); Monocytes % 8.8 % (1.7-12.7); NRBC # 0.03 10*3/uL; Neutrophils % 63.5 % (38.7-73.9); Platelet Count 521 T/CUMM (130-400); Red Blood Count 3.74 MC/CUMM (3.8-5.5); Red Cell Distribution Width 12.6 % (9.3-17.3)
[2019-03-21 06:28] LABS: Alanine Aminotransferase 49 U/L (13-56); Alkaline Phosphatase 101 U/L (45-117); Aspartate Amino Transferase 18 U/L (0-37); Bilirubin,Indirect 0.3 MG/DL (0.0-1.0); Blood Urea Nitrogen 13 MG/DL (7-18); Calcium 9.2 MG/DL (8.5-10.1); Glucose 132 MG/DL (74-106); Osmolality,Calculated 263.7 MOS/KG (273-304); Total Protein 6.8 G/DL (6.4-8.3); Troponin I 0.047 NG/ML (0.00-0.045)
[2019-03-21] MEDS: INSULIN REGULAR 100 UNIT/ML SUBCUT SCH ×4 (08:57→22:15)
[2019-03-21] MEDS: FUROSEMIDE 40 MG/4 ML VIAL IV SCH (10:22)
[2019-03-21] MEDS: PANTOPRAZOLE 40 MG TABLET PO SCH (10:22)
[2019-03-21] MEDS: ROSUVASTATIN 10 MG TABLET PO SCH (10:23)
[2019-03-21] MEDS: hydroCHLOROthiazide 25 MG TABLET PO SCH (10:23)
[2019-03-21] MEDS: LOSARTAN 25 MG TABLET PO SCH (10:23)
[2019-03-21] MEDS: metFORMIN 500 MG TABLET PO SCH ×2 (10:23→17:39)
[2019-03-21] MEDS: FERROUS SULFATE 325 MG TABLET PO SCH (10:24)
[2019-03-21] MEDS: ASPIRIN EC 81 MG TABLET PO SCH (10:25)
[2019-03-21] MEDS: ASCORBIC ACID 500 MG TABLET PO SCH ×2 (10:26→22:15)
[2019-03-21] MEDS: POTASSIUM CHLORIDE 20 MEQ TABLET PO PRN ×3 (10:26→14:21)
[2019-03-21] MEDS: CARVEDILOL 12.5 MG TABLET PO SCH ×2 (10:27→17:39)
[2019-03-21] MEDS: DOCUSATE SODIUM 100 MG CAPSULE PO SCH (10:27)
[2019-03-21] MEDS: POTASSIUM CHLORIDE 20 MEQ TABLET PO SCH ×2 (10:28→22:17)
[2019-03-21] MEDS: CHLORHEXIDINE 0.12% ORAL RINSE 60 ML BOTTLE SWISH/SPIT SCH ×2 (10:28→22:17)
[2019-03-21] MEDS: ONDANSETRON 4 MG/2 ML VIAL IV PRN (13:08)
[2019-03-21] MEDS: NEBIVOLOL 5 MG TABLET PO SCH (22:16)
[2019-03-22] MEDS: ALBUTEROL/IPRATROPIUM 3 ML NEB RESP TX SCH ×6 (00:27→19:40)
[2019-03-22 04:55] LABS: Basophils % 0.3 % (0.0-0.8); Eosinophils # 0.2 10*3/uL (0.0-0.87); Eosinophils % 1.3 % (0.00-10.9); Hematocrit 30.6 VOL% (35.7-47.0); Hemoglobin 10.1 GM/DL (12.0-16.0); Immature Granulocytes % 1.7 %; Immature Granulocytes Absolute 0.23 #; Lymphocytes # 2.4 10*3/uL (1.4-4.0); Lymphocytes % 18.2 % (21.3-54.2); Mean Corpuscular Volume 83.4 FL (87-102); Mean Platelet Volume 9.2 FL (9.6-12.0); Monocytes % 8.6 % (1.7-12.7); NRBC # 0.02 10*3/uL; Neutrophils % 69.9 % (38.7-73.9); Platelet Count 510 T/CUMM (130-400); Red Blood Count 3.67 MC/CUMM (3.8-5.5); Red Cell Distribution Width 12.8 % (9.3-17.3); White Blood Count 13.3 T/CUMM (4-12)
[2019-03-22 05:20] LABS: Osmolality,Calculated 268.5 MOS/KG (273-304)
[2019-03-22] MEDS: PANTOPRAZOLE 40 MG TABLET PO SCH (08:44)
[2019-03-22] MEDS: INSULIN REGULAR 100 UNIT/ML SUBCUT SCH ×4 (08:44→20:53)
[2019-03-22] MEDS: FUROSEMIDE 40 MG/4 ML VIAL IV SCH (08:47)
[2019-03-22] MEDS: metFORMIN 500 MG TABLET PO SCH ×2 (10:15→16:27)
[2019-03-22] MEDS: ROSUVASTATIN 10 MG TABLET PO SCH (10:15)
[2019-03-22] MEDS: hydroCHLOROthiazide 25 MG TABLET PO SCH (10:16)
[2019-03-22] MEDS: LOSARTAN 25 MG TABLET PO SCH (10:16)
[2019-03-22] MEDS: ASCORBIC ACID 500 MG TABLET PO SCH ×2 (10:16→20:53)
[2019-03-22] MEDS: CARVEDILOL 12.5 MG TABLET PO SCH ×2 (10:16→16:27)
[2019-03-22] MEDS: FERROUS SULFATE 325 MG TABLET PO SCH (10:16)
[2019-03-22] MEDS: DOCUSATE SODIUM 100 MG CAPSULE PO SCH (10:16)
[2019-03-22] MEDS: POTASSIUM CHLORIDE 20 MEQ TABLET PO SCH ×2 (10:16→20:53)
[2019-03-22] MEDS: CHLORHEXIDINE 0.12% ORAL RINSE 60 ML BOTTLE SWISH/SPIT SCH ×2 (10:17→21:00)
[2019-03-22] MEDS: MAGNESIUM HYDROXIDE SUSP 30 ML UDCUP PO PRN (16:26)
[2019-03-22] MEDS: NEBIVOLOL 5 MG TABLET PO SCH (20:54)
[2019-03-22] MEDS: NYSTATIN CREAM 15 GM TUBE TOP SCH (20:54)
[2019-03-23] MEDS: ALBUTEROL/IPRATROPIUM 3 ML NEB RESP TX SCH ×7 (00:02→23:03)
[2019-03-23 05:55] LABS: Basophils % 0.2 % (0.0-0.8); Eosinophils # 0.2 10*3/uL (0.0-0.87); Hematocrit 29.9 VOL% (35.7-47.0); Hemoglobin 10.2 GM/DL (12.0-16.0); Immature Granulocytes % 1.7 %; Lymphocytes # 2.9 10*3/uL (1.4-4.0); Lymphocytes % 24.4 % (21.3-54.2); Mean Corpuscular HGB Conc 34.1 GM/DL (32-36); Mean Corpuscular Volume 83.5 FL (87-102); Mean Platelet Volume 9.7 FL (9.6-12.0); Neutrophils % 64.7 % (38.7-73.9); Platelet Count 518 T/CUMM (130-400); Red Blood Count 3.58 MC/CUMM (3.8-5.5); Red Cell Distribution Width 12.8 % (9.3-17.3); White Blood Count 11.8 T/CUMM (4-12)
[2019-03-23 06:12] LABS: Calcium 9.2 MG/DL (8.5-10.1); Osmolality,Calculated 265.7 MOS/KG (273-304)
[2019-03-23] MEDS: INSULIN REGULAR 100 UNIT/ML SUBCUT SCH ×4 (08:49→23:04)
[2019-03-23] MEDS: PANTOPRAZOLE 40 MG TABLET PO SCH (09:36)
[2019-03-23] MEDS: ROSUVASTATIN 10 MG TABLET PO SCH (10:18)
[2019-03-23] MEDS: FERROUS SULFATE 325 MG TABLET PO SCH (10:18)
[2019-03-23] MEDS: metFORMIN 500 MG TABLET PO SCH ×2 (10:18→16:09)
[2019-03-23] MEDS: ASCORBIC ACID 500 MG TABLET PO SCH ×2 (10:19→21:47)
[2019-03-23] MEDS: POTASSIUM CHLORIDE 20 MEQ TABLET PO SCH ×2 (10:19→21:47)
[2019-03-23] MEDS: CARVEDILOL 12.5 MG TABLET PO SCH ×2 (10:19→16:09)
[2019-03-23] MEDS: DOCUSATE SODIUM 100 MG CAPSULE PO SCH (10:19)
[2019-03-23] MEDS: NYSTATIN CREAM 15 GM TUBE TOP SCH ×2 (10:22→21:50)
[2019-03-23] MEDS: FUROSEMIDE 40 MG/4 ML VIAL IV SCH (10:22)
[2019-03-23] MEDS: CHLORHEXIDINE 0.12% ORAL RINSE 60 ML BOTTLE SWISH/SPIT SCH ×2 (10:22→21:50)
[2019-03-23] MEDS: ALUMINUM/MAGNES/SIMETH MAX STR 30 ML UDCUP PO PRN ×2 (10:44→16:14)
[2019-03-23] MEDS: NEBIVOLOL 5 MG TABLET PO SCH (21:47)
[2019-03-24] MEDS: ALBUTEROL/IPRATROPIUM 3 ML NEB RESP TX SCH ×6 (02:31→23:07)
[2019-03-24 06:01] LABS: Basophils % 0.3 % (0.0-0.8); Eosinophils # 0.2 10*3/uL (0.0-0.87); Eosinophils % 1.8 % (0.00-10.9); Hematocrit 31.4 VOL% (35.7-47.0); Hemoglobin 10.4 GM/DL (12.0-16.0); Immature Granulocytes % 1.4 %; Immature Granulocytes Absolute 0.16 #; Lymphocytes # 2.4 10*3/uL (1.4-4.0); Lymphocytes % 20.6 % (21.3-54.2); Mean Corpuscular HGB Conc 33.1 GM/DL (32-36); Mean Platelet Volume 9.1 FL (9.6-12.0); Monocytes % 8.1 % (1.7-12.7); Neutrophils % 67.8 % (38.7-73.9); Platelet Count 511 T/CUMM (130-400); Red Blood Count 3.74 MC/CUMM (3.8-5.5); Red Cell Distribution Width 13.1 % (9.3-17.3); White Blood Count 11.8 T/CUMM (4-12)
[2019-03-24 06:35] LABS: Osmolality,Calculated 269.4 MOS/KG (273-304)
[2019-03-24] MEDS: PANTOPRAZOLE 40 MG TABLET PO SCH (09:47)
[2019-03-24] MEDS: ASCORBIC ACID 500 MG TABLET PO SCH ×2 (09:49→21:29)
[2019-03-24] MEDS: DOCUSATE SODIUM 100 MG CAPSULE PO SCH (09:49)
[2019-03-24] MEDS: ASPIRIN EC 81 MG TABLET PO SCH (09:50)
[2019-03-24] MEDS: metFORMIN 500 MG TABLET PO SCH ×2 (09:50→18:19)
[2019-03-24] MEDS: FERROUS SULFATE 325 MG TABLET PO SCH (09:51)
[2019-03-24] MEDS: CARVEDILOL 12.5 MG TABLET PO SCH ×2 (09:51→18:19)
[2019-03-24] MEDS: CHLORHEXIDINE 0.12% ORAL RINSE 60 ML BOTTLE SWISH/SPIT SCH ×2 (09:52→21:33)
[2019-03-24] MEDS: FUROSEMIDE 40 MG/4 ML VIAL IV SCH (09:52)
[2019-03-24] MEDS: INSULIN REGULAR 100 UNIT/ML SUBCUT SCH ×4 (09:52→21:27)
[2019-03-24] MEDS: POTASSIUM CHLORIDE 20 MEQ TABLET PO SCH ×2 (09:52→21:29)
[2019-03-24] MEDS: NYSTATIN CREAM 15 GM TUBE TOP SCH ×2 (09:52→21:30)
[2019-03-24] MEDS: ROSUVASTATIN 10 MG TABLET PO SCH (09:52)
[2019-03-24] MEDS: ENOXAPARIN 40 MG/0.4 ML SYRINGE SUBCUT SCH (09:53)
[2019-03-24] MEDS: NEBIVOLOL 5 MG TABLET PO SCH (21:29)
[2019-03-24] MEDS: oxyCODONE/ACETAMINOPHEN 5-325 MG TABLET PO PRN (23:36)
[2019-03-25] MEDS: ALBUTEROL/IPRATROPIUM 3 ML NEB RESP TX SCH ×2 (02:11→07:30)
[2019-03-25 04:43] LABS: Basophils % 0.2 % (0.0-0.8); Eosinophils # 0.3 10*3/uL (0.0-0.87); Eosinophils % 2.7 % (0.00-10.9); Hematocrit 29.4 VOL% (35.7-47.0); Hemoglobin 9.5 GM/DL (12.0-16.0); Immature Granulocytes Absolute 0.12 #; Lymphocytes # 2.6 10*3/uL (1.4-4.0); Lymphocytes % 20.7 % (21.3-54.2); Mean Corpuscular HGB Conc 32.3 GM/DL (32-36); Mean Platelet Volume 9.1 FL (9.6-12.0); Monocytes % 7.1 % (1.7-12.7); Neutrophils % 68.3 % (38.7-73.9); Platelet Count 490 T/CUMM (130-400); Red Blood Count 3.42 MC/CUMM (3.8-5.5); Red Cell Distribution Width 13.2 % (9.3-17.3); White Blood Count 12.5 T/CUMM (4-12)
[2019-03-25 05:07] LABS: Calcium 8.9 MG/DL (8.5-10.1); Osmolality,Calculated 274.8 MOS/KG (273-304)
[2019-03-25] MEDS: CARVEDILOL 12.5 MG TABLET PO SCH ×2 (09:59→18:56)
[2019-03-25] MEDS: metFORMIN 500 MG TABLET PO SCH ×2 (09:59→18:56)
[2019-03-25] MEDS: PANTOPRAZOLE 40 MG TABLET PO SCH (09:59)
[2019-03-25] MEDS: FUROSEMIDE 40 MG/4 ML VIAL IV SCH (10:08)
[2019-03-25] MEDS: ENOXAPARIN 40 MG/0.4 ML SYRINGE SUBCUT SCH (10:14)
[2019-03-25] MEDS: POTASSIUM CHLORIDE 20 MEQ TABLET PO SCH ×2 (11:14→21:45)
[2019-03-25] MEDS: ASCORBIC ACID 500 MG TABLET PO SCH ×2 (11:15→21:45)
[2019-03-25] MEDS: FERROUS SULFATE 325 MG TABLET PO SCH (11:15)
[2019-03-25] MEDS: ROSUVASTATIN 10 MG TABLET PO SCH (11:15)
[2019-03-25] MEDS: DOCUSATE SODIUM 100 MG CAPSULE PO SCH (11:16)
[2019-03-25] MEDS: NYSTATIN CREAM 15 GM TUBE TOP SCH ×2 (12:22→21:47)
[2019-03-25] MEDS: CHLORHEXIDINE 0.12% ORAL RINSE 60 ML BOTTLE SWISH/SPIT SCH ×2 (12:22→21:47)
[2019-03-25] MEDS: INSULIN REGULAR 100 UNIT/ML SUBCUT SCH ×4 (12:26→21:46)
[2019-03-25] MEDS: ALUMINUM/MAGNES/SIMETH MAX STR 30 ML UDCUP PO PRN (14:26)
[2019-03-25] MEDS: NEBIVOLOL 5 MG TABLET PO SCH (21:45)
[2019-03-26 05:25] LABS: Basophils % 0.3 % (0.0-0.8); Eosinophils # 0.4 10*3/uL (0.0-0.87); Immature Granulocytes % 0.9 %; Lymphocytes # 2.8 10*3/uL (1.4-4.0); Lymphocytes % 23.9 % (21.3-54.2); Mean Corpuscular HGB Conc 33.3 GM/DL (32-36); Mean Platelet Volume 9.4 FL (9.6-12.0); Monocytes % 6.4 % (1.7-12.7); Neutrophils % 65.5 % (38.7-73.9); Platelet Count 525 T/CUMM (130-400); Red Blood Count 3.53 MC/CUMM (3.8-5.5); Red Cell Distribution Width 13.1 % (9.3-17.3); White Blood Count 11.7 T/CUMM (4-12)
[2019-03-26 05:42] LABS: Platelet Estimate Normal; Polychromasia Few
[2019-03-26 06:00] LABS: Calcium 9.4 MG/DL (8.5-10.1)
[2019-03-26] MEDS: ENOXAPARIN 40 MG/0.4 ML SYRINGE SUBCUT SCH (09:01)
[2019-03-26] MEDS: ASCORBIC ACID 500 MG TABLET PO SCH ×2 (09:01→20:29)
[2019-03-26] MEDS: ASPIRIN EC 81 MG TABLET PO SCH (09:02)
[2019-03-26] MEDS: POTASSIUM CHLORIDE 20 MEQ TABLET PO SCH ×2 (09:02→20:29)
[2019-03-26] MEDS: metFORMIN 500 MG TABLET PO SCH ×2 (09:02→16:47)
[2019-03-26] MEDS: DOCUSATE SODIUM 100 MG CAPSULE PO SCH (09:02)
[2019-03-26] MEDS: ROSUVASTATIN 10 MG TABLET PO SCH (09:02)
[2019-03-26] MEDS: PANTOPRAZOLE 40 MG TABLET PO SCH (09:02)
[2019-03-26] MEDS: FERROUS SULFATE 325 MG TABLET PO SCH (09:03)
[2019-03-26] MEDS: CARVEDILOL 12.5 MG TABLET PO SCH ×2 (09:03→16:47)
[2019-03-26] MEDS: FUROSEMIDE 40 MG/4 ML VIAL IV SCH (09:04)
[2019-03-26] MEDS: NYSTATIN CREAM 15 GM TUBE TOP SCH ×2 (10:03→20:29)
[2019-03-26] MEDS: CHLORHEXIDINE 0.12% ORAL RINSE 60 ML BOTTLE SWISH/SPIT SCH ×2 (10:03→20:29)
[2019-03-26] MEDS: INSULIN REGULAR 100 UNIT/ML SUBCUT SCH ×4 (10:04→20:29)
[2019-03-27 06:07] LABS: Basophils % 0.4 % (0.0-0.8); Eosinophils # 0.4 10*3/uL (0.0-0.87); Eosinophils % 3.3 % (0.00-10.9); Hematocrit 28.9 VOL% (35.7-47.0); Hemoglobin 9.4 GM/DL (12.0-16.0); Immature Granulocytes % 0.8 %; Immature Granulocytes Absolute 0.09 #; Lymphocytes # 2.6 10*3/uL (1.4-4.0); Lymphocytes % 22.6 % (21.3-54.2); Mean Corpuscular HGB Conc 32.5 GM/DL (32-36); Mean Corpuscular Volume 86.5 FL (87-102); Mean Platelet Volume 9.6 FL (9.6-12.0); Monocytes % 6.6 % (1.7-12.7); Neutrophils % 66.3 % (38.7-73.9); Platelet Count 442 T/CUMM (130-400); Red Blood Count 3.34 MC/CUMM (3.8-5.5); Red Cell Distribution Width 13.2 % (9.3-17.3); White Blood Count 11.4 T/CUMM (4-12)
[2019-03-27 06:27] LABS: Osmolality,Calculated 283.8 MOS/KG (273-304)
[2019-03-27] MEDS: PANTOPRAZOLE 40 MG TABLET PO SCH (08:24)
[2019-03-27] MEDS: metFORMIN 500 MG TABLET PO SCH ×2 (08:24→16:18)
[2019-03-27] MEDS: ROSUVASTATIN 10 MG TABLET PO SCH (08:25)
[2019-03-27] MEDS: POTASSIUM CHLORIDE 20 MEQ TABLET PO SCH ×2 (08:25→20:38)
[2019-03-27] MEDS: ASCORBIC ACID 500 MG TABLET PO SCH ×2 (08:25→20:38)
[2019-03-27] MEDS: FERROUS SULFATE 325 MG TABLET PO SCH (08:26)
[2019-03-27] MEDS: ENOXAPARIN 40 MG/0.4 ML SYRINGE SUBCUT SCH (08:26)
[2019-03-27] MEDS: POTASSIUM CHLORIDE 20 MEQ TABLET PO PRN (08:26)
[2019-03-27] MEDS: DOCUSATE SODIUM 100 MG CAPSULE PO SCH (08:26)
[2019-03-27] MEDS: CARVEDILOL 12.5 MG TABLET PO SCH ×2 (08:26→16:18)
[2019-03-27] MEDS: INSULIN REGULAR 100 UNIT/ML SUBCUT SCH ×4 (08:27→20:38)
[2019-03-27] MEDS: FUROSEMIDE 40 MG/4 ML VIAL IV SCH (08:28)
[2019-03-27] MEDS: CHLORHEXIDINE 0.12% ORAL RINSE 60 ML BOTTLE SWISH/SPIT SCH ×2 (08:30→20:38)
[2019-03-27] MEDS: NYSTATIN CREAM 15 GM TUBE TOP SCH ×2 (08:30→20:38)
[2019-03-27] MEDS: MAGNESIUM HYDROXIDE SUSP 30 ML UDCUP PO PRN (19:47)
[2019-03-28 05:43] LABS: Basophils # 0.1 10*3/uL (0.0-0.2); Basophils % 0.4 % (0.0-0.8); Eosinophils # 0.4 10*3/uL (0.0-0.87); Eosinophils % 3.6 % (0.00-10.9); Hematocrit 30.2 VOL% (35.7-47.0); Hemoglobin 9.8 GM/DL (12.0-16.0); Immature Granulocytes % 0.8 %; Lymphocytes # 2.8 10*3/uL (1.4-4.0); Lymphocytes % 23.4 % (21.3-54.2); Mean Corpuscular HGB Conc 32.5 GM/DL (32-36); Mean Corpuscular Volume 85.8 FL (87-102); Monocytes % 6.3 % (1.7-12.7); NRBC # 0.02 10*3/uL; Neutrophils % 65.5 % (38.7-73.9); Platelet Count 495 T/CUMM (130-400); Red Blood Count 3.52 MC/CUMM (3.8-5.5); Red Cell Distribution Width 13.5 % (9.3-17.3); White Blood Count 12.1 T/CUMM (4-12)
[2019-03-28 06:04] LABS: Calcium 9.7 MG/DL (8.5-10.1); Osmolality,Calculated 279.5 MOS/KG (273-304)
[2019-03-28 07:54] VITALS: BP 127/71
== END 2019-03-28 11:58 | disposition home health service (06) | DRG 234 ==
LOC: N.CL 11:09 → N.CC 15:02 → N.CVR 03-14 10:54 → N.ICU 03-15 09:47 → N.TELES 03-16 12:26
PROVIDERS: ADMIT Internal Medicine Interventional Cardiology; ATTEND Internal Medicine Interventional Cardiology